=== PATIENT | female | born 1955 | race Caucasian/White ===

== ENCOUNTER 2018-08-08 23:30 | Inpatient (IN) | payer OTHER ==
[2018-08-09] MEDS ORDERED: ACETAMINOPHEN 325 MG TAB PO
[2018-08-09] MEDS ORDERED: NACL 0.9% 3 ML SYG IV
[2018-08-09] MEDS ORDERED: BISACODYL (EC) 5 MG TAB PO
[2018-08-09] MEDS ORDERED: ONDANSETRON 4 MG INJ IV
[2018-08-09] MEDS: SOD CHLORIDE 0.9% 1,000 ML IV ×3 (01:31→13:42)
[2018-08-09] MEDS: RISPERIDONE 0.25 MG TAB PO ×2 (02:52→21:02)
[2018-08-09] MEDS ORDERED: DOCUSATE SODIUM 100 MG CAP PO ×2 (03:00)
[2018-08-09 05:44] LABS: ADD MAN DIFF? NO
[2018-08-09 05:47] LABS: BASOPHILS % 0.8 % (0.0-2.0); EOSINOPHILS # 0.1 10^3/ul (0.0-0.5); HEMATOCRIT 33.3 % (37.0-47.0); HEMOGLOBIN 10.8 g/dl (12.0-16.0); LYMPHOCYTES # 2.1 10^3/ul (0.8-2.9); LYMPHOCYTES % 40.7 % (15.0-51.0); MEAN CORPUSCULAR HEMOGLOBIN 29.2 pg (29.0-33.0); MEAN CORPUSCULAR HGB CONC 32.4 g/dl (32.0-37.0); MEAN PLATELET VOLUME 8.7 fl (7.4-10.4); MONOCYTE # 0.4 10^3/ul (0.3-0.9); MONOCYTES % 8.4 % (0.0-11.0); NEUTROPHIL # 2.4 10^3/ul (1.6-7.5); NEUTROPHILS % 47.7 % (39.0-77.0); PLATELET COUNT 217 10^3/UL (140-415); RED CELL DISTRIBUTION WIDTH 12.6 % (11.5-14.5)
[2018-08-09 05:47] LABS: WHITE BLOOD COUNT 5.1 10^3/ul (4.8-10.8)
[2018-08-09 06:25] LABS: ALANINE AMINOTRANSFERASE 25 IU/L (13-69); ALBUMIN 3.7 g/dl (3.3-4.9); ALBUMIN/GLOBULIN RATIO 1.19; ALKALINE PHOSPHATASE 64 IU/L (42-121); ANION GAP 7 (5-13); ASPARTATE AMINO TRANSFERASE 19 IU/L (15-46); BILIRUBIN,INDIRECT 0.4 mg/dl (0-1.1); BILIRUBIN,TOTAL 0.4 mg/dl (0.2-1.3); BLOOD UREA NITROGEN 11 mg/dl (7-20); CALCIUM 9.1 mg/dl (8.4-10.2); CARBON DIOXIDE 29 mmol/L (21-31); CHLORIDE 109 mmol/L (97-110); CREATININE 0.65 mg/dl (0.44-1.00); Estimated GFR > 60 mL/min (>60); GLUCOSE 123 mg/dl (70-220); POTASSIUM 4.2 mmol/L (3.5-5.1); SODIUM 145 mmol/L (135-144); TOTAL PROTEIN 6.8 g/dl (6.1-8.1)
[2018-08-09 06:36] LABS: MAGNESIUM 1.8 mg/dl (1.7-2.5)
[2018-08-09 06:36] LABS: CHOL/HDL RATIO 3.2 RATIO; CHOLESTEROL 171 mg/dl (100-200); HDL CHOLESTEROL 53 mg/dl (35-98); LDL CHOLESTEROL,CALCULATED 108 mg/dl; TRIGLYCERIDES 50 mg/dl (0-149)
[2018-08-09 08:15] LABS: HEMOGLOBIN A1C 6.6 % (0-5.9)
[2018-08-09 08:54] LABS: ADD UMIC YES; UR ASCORBIC ACID NEGATIVE (NEGATIVE); UR BILIRUBIN (Dip) NEGATIVE (NEGATIVE); UR BLOOD (Dip) 1+ mg/dL (NEGATIVE); UR CLARITY CLEAR (CLEAR); UR COLOR STRAW (YELLOW); UR GLUCOSE (Dip) NEGATIVE (NEGATIVE); UR KETONES (Dip) NEGATIVE (NEGATIVE); UR LEUKOCYTE ESTERASE (Dip) TRACE Leu/ul (NEGATIVE); UR NITRITE (Dip) NEGATIVE (NEGATIVE); UR RBC 1 /HPF (0-5); UR SPECIFIC GRAVITY (Dip) 1.006 (1.003-1.030); UR TOTAL PROTEIN (Dip) NEGATIVE (NEGATIVE); UR UROBILINOGEN (Dip) NEGATIVE (NEGATIVE); UR WBC 9 /HPF (0-5)
[2018-08-09] MEDS: CEFTRIAXONE 1 GM/50 ML (PMX) 50 ML IVPB (08:59)
[2018-08-09] MEDS: LISINOPRIL 10 MG TAB PO (09:00)
[2018-08-09] MEDS: METOPROLOL (XL) 25 MG TAB PO (09:00)
[2018-08-09] MEDS ORDERED: GLUCOSE GEL 15 GRAM TUBE PO ×2 (13:00)
[2018-08-09] MEDS ORDERED: GLUCOSE GEL 15 GRAM TUBE BUCCAL (13:00)
[2018-08-09] MEDS ORDERED: DEXTROSE 50% 50 ML SYRINGE IV ×2 (13:00)
[2018-08-09] MEDS ORDERED: GLUCAGON 1 MG INJ IM (13:00)
[2018-08-09] MEDS: ACCU-CHEK XX ×2 (17:30→21:00)
[2018-08-09] MEDS: metFORMIN 500 MG TAB PO (17:42)
[2018-08-09] MEDS: SOD CHLORIDE 0.45% 1,000 ML IV (22:52)
[2018-08-10] MEDS: ACCU-CHEK XX ×2 (08:08→11:30)
[2018-08-10] MEDS: metFORMIN 500 MG TAB PO (08:09)
[2018-08-10] MEDS: LISINOPRIL 10 MG TAB PO (08:10)
[2018-08-10] MEDS: METOPROLOL (XL) 25 MG TAB PO (08:12)
[2018-08-10] MEDS: CEFTRIAXONE 1 GM/50 ML (PMX) 50 ML IVPB (08:16)
[2018-08-10] MEDS: RISPERIDONE 1 MG TAB PO (08:32)
[2018-08-10] MEDS: SOD CHLORIDE 0.45% 1,000 ML IV (13:50)
== END 2018-08-10 15:10 | disposition home or self-care (01) | DRG 690 ==
LOC: 2NE 23:30 → 5EC 08-09 21:05
PROVIDERS: Internal Medicine
DX: N39.0 Urinary tract infection, site not specified (principal); R44.3 Hallucinations, unspecified; F29 Unspecified psychosis not due to a substance or known physiological condition; E11.9 Type 2 diabetes mellitus without complications; I10 Essential (primary) hypertension
CPT/HCPCS: 80053; 80061; 81001; 82962; 83036; 83735; 84443; 85025; 87086